=== PATIENT | female | born 1955 | race Hispanic/Latino ===

== ENCOUNTER 2018-04-05 14:49 | Emergency (ER) | payer MEDICAID ==
[~2018-04-05 14:49] MED LIST: ACET-2247 PO; BUSP15TA3 PO; CETI10TA57 PO; LISI10TA7 PO; MONT10TA24 PO; OMEP20CA10 PO; PROAIR HFA IH
[2018-04-05 15:32] LABS: BASOPHILS % (AUTO) 0.3 % (0.0-5.0); EOSINOPHILS % (AUTO) 0.6 % (0.0-8.0); HEMATOCRIT 40.6 % (36-48); LYMPHOCYTES % (AUTO) 23.5 % (21.0-51.0); MEAN CORPUSCULAR HEMOGLOBIN 31.3 pg (27.0-33.0); MEAN CORPUSCULAR HGB CONC 34.7 g/dL (32.0-36.0); MEAN CORPUSCULAR VOLUME 90.1 fL (79-99); MONOCYTES % (AUTO) 6.8 % (3.0-13.0); NEUTROPHILS % (AUTO) 68.8 % (40.0-77.0); PLATELET COUNT (AUTO) 320 K/uL (130-400); RED BLOOD CELL COUNT(AUTO) 4.51 MIL/uL (4.00-5.50); RED CELL DISTRIBUTION WIDTH 12.5 % (11.0-15.5); WHITE BLOOD COUNT (AUTO) 13.1 K/uL (4.8-10.8)
[2018-04-05 15:40] LABS: APPEARANCE,URINE Clear (CLEAR); BILIRUBIN,URINE Negative (NEGATIVE); COLOR,URINE Yellow (YELLOW); GLUCOSE, URINE (UA) Negative (NEGATIVE); KETONES,URINE Negative (NEGATIVE); LEUKOCYTE ESTERASE ,URINE Negative (NEGATIVE); NITRATE,URINE Negative (NEGATIVE); OCCULT BLOOD,URINE Negative (NEGATIVE); PH,URINE 6.5 (5.0-8.0); PROTEIN,URINE Negative (NEGATIVE); UROBILINOGEN,URINE 0.2 mg/dL (0.2-1.0)
[2018-04-05 15:43] LABS: INR 0.95 (0.85-1.15); POTASSIUM 3.5 mmol/L (3.5-5.1)
[2018-04-05 15:58] LABS: ALBUMIN 4.1 g/dL (3.5-5.0); BILIRUBIN,TOTAL 0.4 mg/dL (0.2-1.0); CREATINE KINASE MB 0.6 ng/mL (0.5-3.6); TOTAL PROTEIN, SERUM 7.9 g/dL (6.0-8.3)
[2018-04-05] MEDS ORDERED: ACETAMINOPHEN 325 MG TAB ONE (16:02)
[2018-04-05] MEDS ORDERED: ZOSYN 3.375GM+NS 50ML 50 ML IV ONE (17:27)
[2018-04-05] MEDS ORDERED: METRONIDAZOLE 500 MG TABLET ONE (17:27)
[2018-04-05] MEDS ORDERED: METHYLPREDNISOLONE SOD SUCC 125MG/2ML VIAL ONE (18:02)
[2018-04-05] MEDS ORDERED: DiphenhydrAMINE HCL 50 MG/ML VIAL ONE (18:02)
== END 2018-04-05 20:01 | disposition home or self-care (01) ==
LOC: EDH 14:49
DX: K57.32 Diverticulitis of large intestine without perforation or abscess without bleeding (principal); T36.0X5A Adverse effect of penicillins, initial encounter; I10 Essential (primary) hypertension; J45.909 Unspecified asthma, uncomplicated; Z90.710 Acquired absence of both cervix and uterus; Z88.6 Allergy status to analgesic agent; Z88.1 Allergy status to other antibiotic agents; Z90.49 Acquired absence of other specified parts of digestive tract; Y92.89 Other specified places as the place of occurrence of the external cause
CPT/HCPCS: 36415; 74176; 80053; 81003; 82550; 82553; 84484; 85025; 85610; 85730; 93005; 96365; 96375; 99285; J1200; J2543; J2930

== ENCOUNTER 2018-10-15 12:00 | Observation (INO) | payer MEDICARE ==
[~2018-10-15] VITALS: Ht 158.8 cm; Wt 75.1 kg
[~2018-10-15 12:00] MED LIST changes: -ACET-2247 PO; -BUSP15TA3 PO; -CETI10TA57 PO; -MONT10TA24 PO; -OMEP20CA10 PO
[2018-10-29 12:36] VITALS: BP 149/64
[2018-10-29] MEDS ORDERED: FLUT16H NASAL (12:59)
[2018-10-29] MEDS ORDERED: LORA10CA9 PO (12:59)
[2018-10-29] MEDS ORDERED: DULO20CA17 PO (12:59)
[2018-10-29] MEDS ORDERED: BUDE10.2 IH (12:59)
[2018-10-29] MEDS: CEFAZOLIN SODIUM 1 GM VIAL IVP SCH (13:15)
[2018-10-30] VITALS (22 sets, daily range): BP systolic 130–168; BP diastolic 60–96
[2018-10-30] MEDS ORDERED: LACTATED RINGERS 1000ML 1,000 ML IV ONE (09:36)
[2018-10-30] MEDS ORDERED: GLYCOPYRROLATE 1 MG/5 ML SYRINGE ONE (10:33)
[2018-10-30] MEDS ORDERED: LIDOCAINE PF 2% 5ML ABBOJECT ONE ×2 (10:33→10:36)
[2018-10-30] MEDS ORDERED: DEXAMETHASONE SOD PHOSPHATE 10MG/ML 1ML VIAL ONE ×2 (10:33→10:59)
[2018-10-30] MEDS ORDERED: ONDANSETRON HCL 4 MG/2 ML VIAL ONE (10:33)
[2018-10-30] MEDS ORDERED: PROPOFOL 10 MG/ML 20ML VIAL IV ONE (10:33)
[2018-10-30] MEDS ORDERED: NEOSTIGMINE 5MG/5ML SYR IV ONE (10:33)
[2018-10-30] MEDS ORDERED: MIDAZOLAM HCL 1 MG/ML 2ML VIAL ONE (10:34)
[2018-10-30] MEDS ORDERED: ROCURONIUM 10MG/1ML SYR 10 MG/ML ML ONE (10:34)
[2018-10-30] MEDS ORDERED: FENTANYL CITRATE PF 50 MCG/1 ML 2ML VIAL ONE (10:36)
[2018-10-30] MEDS: CEFAZOLIN SODIUM 1 GM VIAL IVP SCH ×3 (11:00→23:42)
[2018-10-30] MEDS ORDERED: PHENYLEPHRINE HCL 10 MG/ML 1ML VIAL IV ONE (11:16)
[2018-10-30 13:19] LABS: HEMATOCRIT 39.2 % (36-48)
[2018-10-30] MEDS ORDERED: BISACODYL 10 MG SUPP.RECT RC PRN (14:00)
[2018-10-30] MEDS ORDERED: DEXTROSE 5%-LACTATED RINGERS 1,000 ML IV SCH (14:00)
[2018-10-30] MEDS ORDERED: MAGNESIUM HYDROXIDE 30 ML/UDCUP PO PRN (14:00)
[2018-10-30] MEDS ORDERED: ACETAMINOPHEN 325 MG TAB PO PRN (14:00)
[2018-10-30] MEDS ORDERED: HYDRALAZINE HCL 20 MG/ML VIAL IV PRN (15:30)
[2018-10-30] MEDS ORDERED: ONDANSETRON HCL MDV 20ML 2 MG/ML VIAL IVP PRN (15:30)
[2018-10-30] MEDS ORDERED: KETOROLAC TROMETHAMINE 15MG/ML IM PRN (15:30)
--- NOTE | 2018-10-30 16:00 | NUR ---
AMBULATE/VOID PT AMBULATED TO BATHROOM WITH ASSISTANCE, TOLERATED AMBULATE WELL, NO NOTED ADVERSE REACTIONS.
[2018-10-30] MEDS ORDERED: PROAIR IH PRN (16:30)
[2018-10-30 18:04] LABS: HEMATOCRIT 40.2 % (36-48)
[2018-10-30] MEDS ORDERED: ALBUTEROL SULFATE 0.083% 2.5 MG/3 ML INH IH PRN (19:30)
[2018-10-30] MEDS ORDERED: ALPRAZOLAM 0.25 MG TABLET PO PRN (19:30)
[2018-10-30] MEDS: FAMOTIDINE/PF 20 MG/2 ML VIAL IV SCH (20:18)
[2018-10-30] MEDS ORDERED: LORATADINE 10 MG TABLET PO SCH (21:00)
[2018-10-30] MEDS ORDERED: **HM**(Duloxetine HCl 20 MG PO SCH (21:00)
[2018-10-31] VITALS: BP 122/63
[2018-10-31 00:22] LABS: HEMATOCRIT 40.6 % (36-48)
[2018-10-31] MEDS: TRAMADOL HCL 50 MG TABLET PO PRN ×3 (01:08→13:24)
[2018-10-31] MEDS: KETOROLAC TROMETHAMINE 15MG/ML IV PRN ×3 (03:20→15:46)
[2018-10-31 04:00] VITALS: BP 127/75
[2018-10-31 06:34] LABS: HEMATOCRIT 38.1 % (36-48)
[2018-10-31 07:36] VITALS: BP 125/76
[2018-10-31] MEDS: CEFAZOLIN SODIUM 1 GM VIAL IVP SCH (07:54)
[2018-10-31] MEDS: FAMOTIDINE/PF 20 MG/2 ML VIAL IV SCH (07:55)
[2018-10-31] MEDS ORDERED: LISINOPRIL 10 MG TABLET PO SCH (09:00)
[2018-10-31 11:34] VITALS: BP 123/68
--- NOTE | 2018-10-31 14:16 | NUR ---
Nutrition screen: Nutrition notification for dairy allergy. Pt states she is unable to tolerate regular dairy products, pt requesting organic dairy which is what she eats at home however understands organic dairy is not available in hospital. Pt requesting not to be delivered bread, pt understands that removing bread from her diet includes removing [place] toast, waffles and pancakes for breakfast. Appropriate dietary precautions taken in kitchen to avoid mixing dairy in pt's meals.
[2018-10-31 16:50] VITALS: BP 136/69
--- NOTE | 2018-10-31 18:04 | NUR ---
Pt stated she has already rec'd flu shot for the current season. Addendum: 10/31/[address]ENDALL RN RN Amended: Links added.
--- NOTE | 2018-10-31 18:30 | NUR ---
Discharge teaching completed in the room with pt. Emphasis on Dr. De León's discharge orders for activity, medications, and follow up care, as well as s/s to monitor for and when to seek emergency care vs call 911. Copy of discharge orders given to pt at MD request. Pt is to keep dressing to right shoulder in place as ordered by Dr. De León, keep it clean, dry, and intact. Dressing change done per MD orders, 10 intact sutures noted, no active drainage, or discoloration. Slight swelling noted consistent with recent surgery. Painted with Betadine and dressed with Telfa, 4x4 and Medipore tape. Pt tolerated well. PIV removed, tip intact. Dressed with sterile 2x2 and band aid after hemostasis achieved. Follow up appt for saturday set. Pt weheeled to front lobby by [facility] staff for transport home via private car driven by . Pt in stable condition at time of discharge.
== END 2018-10-31 18:15 | disposition home or self-care (01) ==
LOC: EDSTATUS 10-29 11:30 → DAHIP 10-30 08:46 → 4AH 10-30 13:28
DX: M75.100 Unspecified rotator cuff tear or rupture of unspecified shoulder, not specified as traumatic (principal); M75.41 Impingement syndrome of right shoulder; E78.00 Pure hypercholesterolemia, unspecified; E78.5 Hyperlipidemia, unspecified; I10 Essential (primary) hypertension; I25.10 Atherosclerotic heart disease of native coronary artery without angina pectoris; J45.909 Unspecified asthma, uncomplicated; K21.9 Gastro-esophageal reflux disease without esophagitis; Z82.0 Family history of epilepsy and other diseases of the nervous system; Z82.3 Family history of stroke; Z82.49 Family history of ischemic heart disease and other diseases of the circulatory system; Z82.5 Family history of asthma and other chronic lower respiratory diseases; Z83.3 Family history of diabetes mellitus; Z88.5 Allergy status to narcotic agent; Z90.710 Acquired absence of both cervix and uterus; Z96.611 Presence of right artificial shoulder joint; Z88.1 Allergy status to other antibiotic agents
CPT/HCPCS: 23120; 23130; 23412; 24110; 36415 ×2; 85014 ×4; 85018 ×4; 88304; 88311; 94640; 94664; 94760; 96372; 96374; 96375 ×2; 96376 ×2; 97039; 97116 ×2; 97161; A4606; A4649; A6223; C1713 ×2; G0378 ×34; G8978; G8979; G8980; G8981; G8982; G8983; J0690 ×4; J1100 ×2; J1885 ×4; J2001 ×2; J2250; J2370; J2405; J2704; J2710; J3010; J3490 ×4; J7030; J7120; A4218

== ENCOUNTER 2019-05-04 14:19 | Emergency (ER) | payer MEDICARE ==
[~2019-05-04 14:19] MED LIST changes: +BUDE10.2 IH; +DULO20CA17 PO; +FLUT16H NASAL; +LORA10CA9 PO
[2019-05-04] MEDS ORDERED: NAPROXEN 500 MG TABLET ONE (16:06)
== END 2019-05-04 17:48 | disposition home or self-care (01) ==
LOC: EDH 14:19
DX: G89.29 Other chronic pain (principal); M79.605 Pain in left leg; Z98.890 Other specified postprocedural states; F41.9 Anxiety disorder, unspecified; J45.909 Unspecified asthma, uncomplicated; I10 Essential (primary) hypertension; Z88.8 Allergy status to other drugs, medicaments and biological substances; Z88.6 Allergy status to analgesic agent; Z88.1 Allergy status to other antibiotic agents; Z91.040 Latex allergy status
CPT/HCPCS: 93971

== ENCOUNTER 2021-05-13 12:14 | Emergency (ER) | payer OTHER, MEDICARE ==
[~2021-05-13] VITALS: Ht 157.5 cm; Wt 72.6 kg
[~2021-05-13 12:14] MED LIST changes: -DULO20CA17 PO; +DULO20CA18 PO; +LISI10TA24 PO; -LISI10TA7 PO
[2021-05-13 13:51] VITALS: BP 145/76
[2021-05-13] MEDS ORDERED: KETOROLAC 60 MG VIAL (30MG/ML) IM ONE (14:45)
[2021-05-13] MEDS ORDERED: ACETAMINOPHEN 500 MG TABLET PO ONE (14:45)
[2021-05-13 14:52] VITALS: BP 142/78
[2021-05-13] MEDS ORDERED: ACETAMINOPHEN 500 MG TABLET ONE (15:38)
[2021-05-13] MEDS ORDERED: KETOROLAC 60 MG VIAL (30MG/ML) ONE (15:38)
[2021-05-13] MEDS ORDERED: NAPR-1180 PO (16:05)
[2021-05-13] MEDS ORDERED: PRED20TA3 PO (16:05)
== END 2021-05-13 16:07 | disposition home or self-care (01) ==
LOC: EDH 12:14
DX: M17.11 Unilateral primary osteoarthritis, right knee (principal); I10 Essential (primary) hypertension; F41.9 Anxiety disorder, unspecified; Z88.1 Allergy status to other antibiotic agents; Z79.899 Other long term (current) drug therapy; Z79.51 Long term (current) use of inhaled steroids; Z79.1 Long term (current) use of non-steroidal anti-inflammatories (NSAID); Z88.5 Allergy status to narcotic agent; Z90.49 Acquired absence of other specified parts of digestive tract; Z90.710 Acquired absence of both cervix and uterus
CPT/HCPCS: 36415; 84550; 96372; 99284; J1885

== ENCOUNTER 2022-01-05 11:18 | Emergency (ER) | payer OTHER, MEDICARE ==
[~2022-01-05] VITALS: Ht 157.5 cm; Wt 72.6 kg
[~2022-01-05 11:18] MED LIST changes: +NAPR-1180 PO; +PRED20TA3 PO
[2022-01-05 11:19] VITALS: BP 140/65
[2022-01-05] MEDS ORDERED: KETOROLAC 60 MG VIAL (30MG/ML) IM ONE (12:00)
[2022-01-05] MEDS ORDERED: HYDROCODONE/ACETAMINOPHEN 5/325 MG TAB PO ONE (12:00)
[2022-01-05] MEDS ORDERED: TRAM1TAB PO (12:39)
[2022-01-05] MEDS ORDERED: NAPR-1180 PO (12:40)
== END 2022-01-05 12:49 | disposition home or self-care (01) ==
LOC: EDH 11:22
DX: M17.11 Unilateral primary osteoarthritis, right knee (principal); I10 Essential (primary) hypertension; F41.9 Anxiety disorder, unspecified; Z79.1 Long term (current) use of non-steroidal anti-inflammatories (NSAID); Z79.51 Long term (current) use of inhaled steroids; Z79.52 Long term (current) use of systemic steroids; Z79.899 Other long term (current) drug therapy; Z88.1 Allergy status to other antibiotic agents; Z88.5 Allergy status to narcotic agent; Z90.49 Acquired absence of other specified parts of digestive tract
CPT/HCPCS: 73562; 96372; 99283; J1885

== ENCOUNTER 2023-06-04 11:05 | Emergency (ER) | payer OTHER, MEDICARE ==
[~2023-06-04] VITALS: Ht 157.5 cm; Wt 74.4 kg
[~2023-06-04 11:05] MED LIST changes: +TRAM1TAB2 PO
[2023-06-04 11:12] VITALS: BP 147/66; PULSE 64; RESP 16
[2023-06-04] MEDS ORDERED: IBUPROFEN 600 MG TABLET PO ONE (12:30)
[2023-06-04] MEDS ORDERED: IBUP-2070 PO (13:03)
[2023-06-04] MEDS ORDERED: PRED20TA3 PO (13:03)
== END 2023-06-04 13:31 | disposition home or self-care (01) ==
LOC: EDH 11:05
DX: G89.29 Other chronic pain (principal); M25.561 Pain in right knee; F41.9 Anxiety disorder, unspecified; I10 Essential (primary) hypertension; Z90.49 Acquired absence of other specified parts of digestive tract; Z90.710 Acquired absence of both cervix and uterus; Z79.51 Long term (current) use of inhaled steroids; Z79.52 Long term (current) use of systemic steroids; Z79.899 Other long term (current) drug therapy; Z88.1 Allergy status to other antibiotic agents; Z88.5 Allergy status to narcotic agent
CPT/HCPCS: 73562; 93971

== ENCOUNTER 2023-10-12 15:31 | Emergency (ER) | payer OTHER, MEDICARE ==
[~2023-10-12] VITALS: Ht 157.5 cm; Wt 74.8 kg
[~2023-10-12 15:31] MED LIST changes: +IBUP-2070 PO
[2023-10-12 19:39] VITALS: BP 176/66; PULSE 62; RESP 17; O2SAT 97
[2023-10-12 20:07] LABS: BASOPHILS # (AUTO) 0.03 K/uL (0.00-0.20); BASOPHILS % (AUTO) 0.2 % (0.0-5.0); EOSINOPHILS # (AUTO) 0.19 K/uL (0.00-0.70); EOSINOPHILS % (AUTO) 1.6 % (0.0-8.0); HEMATOCRIT 39.1 % (36-48); IMMATURE GRANULOCYTE ABSOLUTE 0.08 K/uL (0-1); LYMPHOCYTES # (AUTO) 3.3 K/uL (1.0-4.8); LYMPHOCYTES % (AUTO) 26.9 % (21.0-51.0); MEAN CORPUSCULAR HEMOGLOBIN 30.7 pg (27.0-33.0); MEAN CORPUSCULAR HGB CONC 33.5 g/dL (32.0-36.0); MEAN CORPUSCULAR VOLUME 91.6 fL (79-99); MONOCYTES # (AUTO) 0.9 K/uL (0.1-1.0); MONOCYTES % (AUTO) 7.4 % (3.0-13.0); NEUTROPHILS # (AUTO) 7.8 K/uL (1.8-7.7); NEUTROPHILS % (AUTO) 63.2 % (40.0-77.0); PLATELET COUNT (AUTO) 314 K/uL (130-400); RED BLOOD CELL COUNT(AUTO) 4.27 MIL/uL (4.00-5.50); RED CELL DISTRIBUTION WIDTH 12.9 % (11.0-15.5); WHITE BLOOD COUNT (AUTO) 12.3 K/uL (4.8-10.8)
[2023-10-12 20:18] LABS: CREATININE 0.8 mg/dL (0.5-1.5); POTASSIUM 3.4 mmol/L (3.5-5.1)
[2023-10-12 20:23] LABS: ALBUMIN 3.6 g/dL (3.5-5.0); BILIRUBIN,TOTAL 0.2 mg/dL (0.2-1.0); TOTAL PROTEIN, SERUM 6.8 g/dL (6.0-8.3)
[2023-10-12] MEDS ORDERED: CEPH500B PO (21:58)
== END 2023-10-12 22:09 | disposition home or self-care (01) ==
LOC: EDH 15:31
DX: T81.41XA Infection following a procedure, superficial incisional surgical site, initial encounter (principal); E11.9 Type 2 diabetes mellitus without complications; E78.00 Pure hypercholesterolemia, unspecified; I10 Essential (primary) hypertension; Z79.51 Long term (current) use of inhaled steroids; Z79.52 Long term (current) use of systemic steroids; Z79.899 Other long term (current) drug therapy; Z88.1 Allergy status to other antibiotic agents; Z88.5 Allergy status to narcotic agent; Z90.49 Acquired absence of other specified parts of digestive tract
CPT/HCPCS: 36415; 73562; 80053; 82948; 83605; 85025; 87040

== ENCOUNTER 2025-02-14 20:26 | Emergency (ER) | payer OTHER, MEDICARE ==
[~2025-02-14] VITALS: Ht 157.5 cm; Wt 71.2 kg
[~2025-02-14 20:26] MED LIST changes: +CEPH500B PO; -IBUP-2070 PO; -NAPR-1180 PO; -PRED20TA3 PO; -TRAM1TAB2 PO
--- NOTE | 2025-02-14 20:41 | ERN ---
ED Note History of Present Illness Stated Complaint: RUQ ABD PAIN Chief Complaint: Abdominal Pain Time Seen by MD: 20:29 Dictation: PATIENT IS A 69-YEAR-OLD FEMALE HERE WITH COMPLAINTS OF RIGHT UPPER AND LOWER QUADRANT PAIN TENDERNESS ONSET WAS SATURDAY. SHE SAID SHE HAS HAD NAUSEA WITHOUT VOMITING NO FEVER NO CHILLS. STATES HER GALLBLADDER IS SURGICALLY ABSENT. NO CHEST PAIN NO BACK PAIN NO SOB. Allergies: Coded Allergies: codeine (Verified Allergy, Unknown, 09/14/15) levofloxacin (Verified Allergy, Unknown, 09/14/15) Uncoded Allergies: DAIRY PRODUCTS (Allergy, Severe, ANAPHYLAXIS, 10/29/18) Home Meds Active Scripts Cephalexin Monohydrate (Keflex) 500 Mg Cap, 500 MG PO QID for 7 Days, #28 CAP Prov:JENNYFER GOODRICH MD 10/12/23 Reported Medications Duloxetine HCl (Duloxetine HCl) 20 Mg Capsule.dr, 20 MG PO HS, CAP 10/29/18 Fluticasone Propionate (Flonase Nasal [place]) 50 Mcg/[place], 2 SPRAY NASAL HS, SPRAY 10/29/18 Budesonide/Formoterol Fumarate (Symbicort 160-4.5 Mcg Inhaler) 10.2 Gm Hfa.aer.ad, 2 PUFF IH DAILY 10/29/18 Loratadine (Loratadine) 10 Mg Capsule, 10 MG PO HS, CAP 10/29/18 [Proair Hfa] No Conflict Check, 1 PUFF IH AD PRN for ASTHMA 09/14/15 Lisinopril (Lisinopril) 10 Mg Tablet, 10 MG PO DAILY, TAB 09/14/15 Past Medical History Past Medical History: Anxiety, Depression, Diabetes-Type II, High Cholesterol, Hypertension Surgical History: Appendectomy, Hysterectomy, Tonsillectomy, Cholecystectomy, Other Surgical History Other: KNEE Family History: Negative Social History: Negative, Lives with family History: Not Applicable RN Note Reviewed/Agreed w/PFSH: Yes Review of System Dictation CONSTITUTIONAL: NEGATIVE EXCEPT FOR HPI HEAD/FACE: NEGATIVE EXCEPT FOR HPI EENT: NEGATIVE EXCEPT FOR HPI RESPIRATORY: NEGATIVE EXCEPT FOR HPI GASTROINTESTINAL/ABDOMINAL: NEGATIVE EXCEPT FOR HPI RIGHT UPPER AND LOWER QUADRANT PAIN TENDERNESS NAUSEA GENITOURINARY: NEGATIVE EXCEPT FOR HPI MUSCULOSKELETAL: NEGATIVE EXCEPT FOR HPI INTEGUMENTARY: NEGATIVE EXCEPT FOR HPI NEUROLOGICAL/PSYCH: NEGATIVE EXCEPT FOR HPI HEMATOLOGIC/LYMPHATIC: NEGATIVE EXCEPT FOR HPI ALL SYSTEMS NEGATIVE, EXCEPT NOTED ABOVE. 13 POINT REVIEW OF SYSTEMS ASSESSED AND ALL NEGATIVE EXCEPT FOR ABOVE. Initial Vital Sign VS Vital Signs Date Time Temp Pulse Resp B/P (MAP) Pulse Ox O2 Delivery O2 Flow Rate FiO2 02/14/25 20:30 99.0 85 16 143/73 97 Room Air 0 02/14/25 23:00 21 Physical Exam Dictation VITAL SIGNS REVIEWED GENERAL APPEARANCE: ALERT, ORIENTED X 3, MILD ACUTE DISTRESS, WELL DEVELOPED, NOURISHED. HEAD AND FACE: NON-TRAUMATIC. EYES: PERRL, PINK CONJUNCTIVAS, EYELID NO TRAUMA, ANTERIOR CHAMBER WITH ARCUS SENILIS. EARS: PINNAS INTACT AND NO SIGNS OF TRAUMA OR ERYTHEMA EAR CANALS CLEAR AND NO DISCHARGE TM NO ERYTHEMA NOSE: NO DISCHARGE, NO BLEEDING. OROPHARYNX: MOUTH NORMAL, TONGUE PINK, PHARYNX CLEAR,NO ERYTHEMA, TONSILS NO EXUDATES, NO ABSCESSES NOTED, MUCOUS MEMBRANE MOIST NECK: SUPPLE, NON-TENDER, NO THYROMEGALY, NO MASSES, NO JVD, NO BRUITS BREAST:DEFERRED CHEST:NO TENDERNESS, NO CREPITUS, NO PARADOXICAL MOVEMENT, NO RETRACTIONS LUNGS:CLEAR, WELL-VENTILATED, SYMMETRIC, NO RALES, NO WHEEZING, NO RHONCHI, NO STRIDOR, GOOD BREATH SOUNDS BILATERALLY HEART: REGULAR RATE, REGULAR RHYTHM, NO MURMUR, NO GALLOPS VASCULAR: NO PERIPHERAL EDEMA, ABDOMEN: SOFT, POSITIVE BOWEL SOUNDS, NONDISTENDED, NO GUARDING, MILD RIGHT UPPER QUADRANT AND LOWER QUADRANT TENDERNESS WITH PALPATION. RECTAL: DEFERRED GENITAL: DEFERRED NEUROLOGICAL: NORMAL SPEECH, MOTOR FUNCTION INTACT, SENSORY FUNCTION INTACT MUSCULOSKELETAL: NECK NONTENDER, FULL RANGE OF MOTION, BACK NONTENDER, FULL RANGE OF MOTION, EXTREMITIES: NONTENDER, FULL RANGE OF MOTION SKIN: COLOR PINK, DRY, NO TURGOR, NO RASH, NO LACERATIONS, NO ABRASIONS, NO CONTUSIONS. LYMPHATIC: DEFERRED Results (Laboratory/Radiology) Laboratory/Radiology Laboratory Tests Test 02/14/25 21:10 02/14/25 21:33 White Blood Count 8.5 K/uL (4.8-10.8) Red Blood Count 4.32 MIL/uL (4.00-5.50) Hemoglobin 13.1 g/dL (12.0-16.0) Hematocrit 39.7 % (36-48) Mean Corpuscular Volume 91.9 fL (79-99) Mean Corpuscular Hemoglobin 30.3 pg (27.0-33.0) Mean Corpuscular Hemoglobin Concent 33.0 g/dL (32.0-36.0) Red Cell Distribution Width 12.9 % (11.0-15.5) Platelet Count 315 K/uL (130-400) Mean Platelet Volume 10.9 fL (7.5-10.5) H Immature Granulocyte % (Auto) 0.4 % (0-1) Neutrophils (%) (Auto) 64.6 % (40.0-77.0) Lymphocytes (%) (Auto) 25.3 % (21.0-51.0) Monocytes (%) (Auto) 8.7 % (3.0-13.0) Eosinophils (%) (Auto) 0.8 % (0.0-8.0) Basophils (%) (Auto) 0.2 % (0.0-5.0) Neutrophils # (Auto) 5.5 K/uL (1.8-7.7) Lymphocytes # (Auto) 2.2 K/uL (1.0-4.8) Monocytes # (Auto) 0.7 K/uL (0.1-1.0) Eosinophils # (Auto) 0.07 K/uL (0.00-0.70) Basophils # (Auto) 0.02 K/uL (0.00-0.20) Absolute Immature Granulocyte (auto 0.03 K/uL (0-1) Nucleated Red Blood Cells 0.0 % (0.0-0.19) Sodium Level 146 mmol/L (136-145) H Potassium Level 4.0 mmol/L (3.5-5.1) Chloride Level 106 mmol/L (101-111) Carbon Dioxide Level 34 mmol/L (21-32) H Blood Urea Nitrogen 12 mg/dL (7-18) Creatinine 0.8 mg/dL (0.5-1.0) Glomerular Filtration Rate Calc 79 mL/min (>90) Random Glucose 115 mg/dL (70-105) H Total Calcium 8.8 mg/dL (8.5-10.1) Lipase 33 U/L (16-77) Urine Color LIGHT-YELLOW (YELLOW) Urine Appearance CLEAR (CLEAR) Urine pH 7.5 (5.0-8.0) Urine Specific [place] 1.011 (1.001-1.031) Urine Protein NEGATIVE mg/dL (NEGATIVE) Urine Glucose (UA) NEGATIVE mg/dL (NEGATIVE) Urine Ketones NEGATIVE mg/dL (NEGATIVE) Urine Occult Blood NEGATIVE (NEGATIVE) Urine Nitrate NEGATIVE (NEGATIVE) Urine Bilirubin NEGATIVE mg/dL (NEGATIVE) Urine Urobilinogen 0.2 mg/dL (0.2-1.0) Urine Leukocyte Esterase NEGATIVE Lee/uL CT ABDOMEN/PELVIS W/CONTRAST HISTORY: Abdominal pain COMPARISON: 04/05/2018 TECHNIQUE: Multiple sequential axial images of the abdomen and pelvis were obtained from the dome of the diaphragm through symphysis pubis. Patient was given 75 cc of Omnipaque through intravenous route. Oral contrast was not given. FINDINGS: No pleural effusion is seen bilaterally. There is no evidence of parenchymal disease or pulmonary nodule of the visualized lower lungs. Degenerative changes of the thoracolumbar spine are present. The heart is not enlarged. Postcholecystectomy changes are seen. The liver, spleen, adrenal glands and pancreas are unremarkable. There is no evidence of hydronephrosis bilaterally. No evidence of renal stone is seen. Fecal material is seen in the colon. There are normal size retroperitoneal and mesenteric lymph nodes. No ascites is seen. Appendix is not well seen limiting evaluation. Ankle correlation is recommended. Pelvic sidewalls are symmetric bilaterally. Bladder is poorly distended. IMPRESSION: 1. Large amount of fecal material is seen in the colon. No ascites is seen. Labs Reviewed?: Yes ED Course ED Course Orders Procedure Category Date Status Time Cbc With Differential LAB 02/14/25 Complete 20:38 Urinalysis Profile LAB 02/14/25 Complete 20:38 Ct Abdomen/Pelvis CT 02/14/25 Resulted W/Contrast 20:38 0.9%Nacl 1000ml (Ns PHA 02/14/25 Complete 1000ml) 21:00 Ondansetron 4mg Inj PHA 02/14/25 Complete (Zofran 4mg Inj) 21:00 Lipase LAB 02/14/25 Complete 20:38 Basic Metabolic Panel LAB 02/14/25 Complete 20:38 Ketorolac PHA 02/14/25 Complete Tromethamine 30mg/Ml 21:00 Iohexol (Omnipaque) PHA 02/14/25 Complete 22:00 Current Medications Medications (Trade) Dose Ordered Sig/Marie Route PRN Reason Start Time Stop Time Status Last Admin Dose Admin Iohexol (Omnipaque) 75 ml STK-MED ONCE IV 02/14/25 22:00 02/14/25 22:00 DC Ketorolac Tromethamine (toRADol) 30 mg ONCE ONCE IVP 02/14/25 21:00 02/14/25 21:01 DC 02/14/25 21:29 Ondansetron HCl (zoFRAN 4MG INJ) 4 mg ONCE ONCE IVP 02/14/25 21:00 02/14/25 21:01 DC 02/14/25 21:29 Sodium Chloride 1,000 ml @ 0 mls/hr ONCE ONCE IV 02/14/25 21:00 02/14/25 21:01 DC 02/14/25 21:29 Vital Signs Date Time Temp Pulse Resp B/P (MAP) Pulse Ox O2 Delivery O2 Flow Rate FiO2 02/14/25 23:00 98.8 88 16 146/63 98 Room Air* 0 21 02/14/25 20:30 99.0 85 16 143/73 97 Room Air 0 Medical Decision Making [facility] MEDICAL DISCHARGE MAKING BASED ON ABDOMINAL LABS TO INCLUDE URINE AND CT TO RULE OUT APPENDICITIS VERSUS DIVERTICULITIS LABS ARE NEGATIVE CT DEMONSTRATES CONSTIPATION ONLY PATIENT DISCHARGED HOME WITH DEFINITIVE TREATMENT FOR CONSTIPATION WITH RASHID TOLD TO SEE HER PRIMARY CARE DOCTOR DX & DISP Disposition: Discharge Departure Impression: Primary Impression: Acute constipation Condition: Stable Scripts Magnesium Hydroxide (Milk of Magnesia) 400 Mg/5 Ml Oral.susp 60 ML PO BID for constipation for 30 Days, #300 ML 0 Refills 60 ML TWICE A DAY BY MOUTH NEEDED FOR CONSTIPATION WITH 8 OZ OF WATER. Prov: MARK PORTILLO COLLAR SEPARATOR 02/14/25 Additional Instructions: FOLLOW-UP WITH PRIMARY CARE PROVIDER IN 1 TO 2 DAYS. TAKE MEDICATIONS DIRECTED HERE IN THE EMERGENCY ROOM. OKAY TO CONTINUE HOME MEDICATIONS UNLESS OTHERWISE DISCUSSED DURING YOUR VISIT IN THE EMERGENCY ROOM TODAY. RETURN TO YOUR NEAREST EMERGENCY ROOM IF SYMPTOMS WORSEN OR IF THERE IS NO IMPROVEMENT. CALL 911 IF YOU NEED IMMEDIATE ASSISTANCE. TAKE TYLENOL OR MOTRIN DEUE-[id number] NEEDED AND IF NO CONTRAINDICATIONS ARE PRESENT. INCREASE ORAL HYDRATION. A WOUND CULTURE OR URINE CULTURE WAS ORDERED HERE IN THE EMERGENCY ROOM DEPARTMENT PLEASE FOLLOW-UP WITH PRIMARY CARE PROVIDER AND ADVISE THEM TO GET REPEAT PORTS FROM OUR FACILITY. IF YOU HAD ANY GERARDO WRAP/SPLINTS THAT WERE APPLIED HERE, PLEASE DO NOT REMOVE THEM UNTIL YOU SEE YOUR PRIMARY CARE OR SPECIALTY. USE MILK OF MAGNESIA DIRECTED FOR CONSTIPATION. SEE YOUR PRIMARY CARE DOCTOR FOR FOLLOW UP. INCREASE FIBER IN DIET Referrals: JLUIS ALCANTAR (PCP) Time of Disposition: 23:06 I have reviewed the case, and I agree with, Diagnosis and Plan MARK PORTILLO NP Feb 14, 2025 20:41
[2025-02-14 21:17] LABS: BASOPHILS # (AUTO) 0.02 K/uL (0.00-0.20); BASOPHILS % (AUTO) 0.2 % (0.0-5.0); EOSINOPHILS # (AUTO) 0.07 K/uL (0.00-0.70); EOSINOPHILS % (AUTO) 0.8 % (0.0-8.0); HEMATOCRIT 39.7 % (36-48); IMMATURE GRANULOCYTE ABSOLUTE 0.03 K/uL (0-1); LYMPHOCYTES # (AUTO) 2.2 K/uL (1.0-4.8); LYMPHOCYTES % (AUTO) 25.3 % (21.0-51.0); MEAN CORPUSCULAR HEMOGLOBIN 30.3 pg (27.0-33.0); MEAN CORPUSCULAR VOLUME 91.9 fL (79-99); MONOCYTES # (AUTO) 0.7 K/uL (0.1-1.0); MONOCYTES % (AUTO) 8.7 % (3.0-13.0); NEUTROPHILS # (AUTO) 5.5 K/uL (1.8-7.7); NEUTROPHILS % (AUTO) 64.6 % (40.0-77.0); PLATELET COUNT (AUTO) 315 K/uL (130-400); RED BLOOD CELL COUNT(AUTO) 4.32 MIL/uL (4.00-5.50); RED CELL DISTRIBUTION WIDTH 12.9 % (11.0-15.5); WHITE BLOOD COUNT (AUTO) 8.5 K/uL (4.8-10.8)
[2025-02-14] MEDS: 0.9%NACL 1000ML 1,000 ML IV ONE (21:29)
[2025-02-14] MEDS: ondanSETRON 4MG INJ IVP ONE (21:29)
[2025-02-14] MEDS: ketOROlac 30MG VIAL (30MG/ML) IVP ONE (21:29)
[2025-02-14 21:35] LABS: CREATININE 0.8 mg/dL (0.5-1.0)
[2025-02-14 21:46] LABS: APPEARANCE,URINE CLEAR (CLEAR); BILIRUBIN,URINE NEGATIVE (NEGATIVE); COLOR,URINE LIGHT-YELLOW (YELLOW); GLUCOSE, URINE (UA) NEGATIVE (NEGATIVE); KETONES,URINE NEGATIVE (NEGATIVE); LEUKOCYTE ESTERASE ,URINE NEGATIVE Leu/uL (NEGATIVE); NITRATE,URINE NEGATIVE (NEGATIVE); OCCULT BLOOD,URINE NEGATIVE (NEGATIVE); PH,URINE 7.5 (5.0-8.0); PROTEIN,URINE NEGATIVE (NEGATIVE); UROBILINOGEN,URINE 0.2 mg/dL (0.2-1.0)
[2025-02-14 21:50] LABS: ADD UA MICROSCOPIC NO
[2025-02-14] MEDS ORDERED: IOHEXOL-350 75 ML VIAL IV ONE (22:00)
--- NOTE | 2025-02-14 22:15 | NUR ---
PATIENT TO CT
--- NOTE | 2025-02-14 22:36 | NUR ---
RETURNED FROM CT
--- NOTE | 2025-02-14 22:56 | HMCIMG ---
CT ABDOMEN/PELVIS W/CONTRAST HISTORY: Abdominal pain COMPARISON: 04/05/2018 TECHNIQUE: Multiple sequential axial images of the abdomen and pelvis were obtained from the dome of the diaphragm through symphysis pubis. Patient was given 75 cc of Omnipaque through intravenous route. Oral contrast was not given. FINDINGS: No pleural effusion is seen bilaterally. There is no evidence of parenchymal disease or pulmonary nodule of the visualized lower lungs. Degenerative changes of the thoracolumbar spine are present. The heart is not enlarged. Postcholecystectomy changes are seen. The liver, spleen, adrenal glands and pancreas are unremarkable. There is no evidence of hydronephrosis bilaterally. No evidence of renal stone is seen. Fecal material is seen in the colon. There are normal size retroperitoneal and mesenteric lymph nodes. No ascites is seen. Appendix is not well seen limiting evaluation. Ankle correlation is recommended. Pelvic sidewalls are symmetric bilaterally. Bladder is poorly distended. IMPRESSION: 1. Large amount of fecal material is seen in the colon. No ascites is seen. CT was performed with one or more following dose reduction techniques: automated exposure control, adjustment of the mA and kv according to patient's size, or use of a iterative reconstruction technique.
[2025-02-14 23:00] VITALS: BP 146/63; PULSE 88; RESP 16; TEMP 98.8; O2SAT 98
[2025-02-14] MEDS ORDERED: MAGN400O17 PO (23:09)
== END 2025-02-14 23:40 | disposition home or self-care (01) ==
LOC: EDH 20:26
DX: K59.00 Constipation, unspecified (principal); E11.9 Type 2 diabetes mellitus without complications; E78.00 Pure hypercholesterolemia, unspecified; I10 Essential (primary) hypertension; F41.9 Anxiety disorder, unspecified; Z79.51 Long term (current) use of inhaled steroids; Z79.899 Other long term (current) drug therapy; Z88.1 Allergy status to other antibiotic agents; Z88.5 Allergy status to narcotic agent; Z90.49 Acquired absence of other specified parts of digestive tract; Z90.710 Acquired absence of both cervix and uterus
CPT/HCPCS: 99285; 74177; 96374; 96361; 96375; 80048; 83690; 85025; 81003; 36415; J1885; J7030; J2405; Q9967